=== PATIENT | male | born 1960 | race Caucasian/White ===

== ENCOUNTER 2016-09-29 14:11 | Emergency (ER) | payer OTHER ==
[~2016-09-29 14:11] MED LIST: AMARYL1 MG PO; ASPIRIN EC LOW81 MG PO; FUROSEMIDE40 MG PO; GLUCOPHAGE500 MG PO; KLOR-CON 1010 MEQ PO; LANTUS SOL100 UNITS/ SC; METFORMIN HCL500 MG PO; PROAIR HFA IN
--- NOTE | 2016-09-29 15:51 | DIAGNOSTIC IMAGING REPORT ---
PROCEDURE: XR CHEST 2 VIEW INDICATION: SHORTNESS OF BREATH TECHNIQUE: PA and lateral views. COMPARISON: CT abdomen and pelvis of 07/30/2014 FINDINGS: Lungs are clear. There is a scarring and pleural thickening at the left costophrenic angle that was visible on and abdominal CT from 2015. Previous sternotomy. IMPRESSION: 1. No acute disease
--- NOTE | 2016-09-29 16:45 | DIAGNOSTIC IMAGING REPORT ---
PROCEDURE: CT ABDOMEN/PELVIS W/O CONTRAST INDICATION: ABDOMINAL PAIN TECHNIQUE: Axial CT images were obtained through the abdomen and pelvis without IV contrast. Coronal and sagittal reformations were created. COMPARISON: Abdominal CT 07/30/2014 FINDINGS: ABDOMEN: Multiple nonobstructing left renal calculi (two - 4 mm (and single nonobstructing right renal calculus, 5 mm. No hydronephrosis. Normal ureters and bladder. Mild right basilar scarring. Mild cardiomegaly. Median sternotomy. Liver, gallbladder, pancreas, spleen and adrenal glands are normal. Mild calcific atherosclerosis. PELVIS: Appendix not visualized. Redundant sigmoid. No diverticulosis, inflammatory changes or free fluid. Prostate and bladder are unremarkable. Old left rib fracture. Severe L5-S1 disc space narrowing. IMPRESSION: 1. Multiple nonobstructing bilateral renal calculi 2. Results discussed with Dr. Khan at 04:[address] scans at this facility use dose modulation, iterative reconstruction, and/or weight-based dosing when appropriate to reduce radiation dose to as low as reasonably achievable.
--- NOTE | 2016-09-29 17:11 | ED CLINICAL REPORT ---
Clinical Report - Physicians/Mid Levels [facility] [address] [place] [address] 09/29/2016 14:12 Patient: LEONARD SHUKLA Time Seen: 14:18. Arrived- By private vehicle. Historian- patient. Note: (sent from [facility] for evaluation). HISTORY OF PRESENT ILLNESS Chief Complaint: HIGH BLOOD SUGAR. ABNORMAL GLUCOSE. At its maximum, severity described as moderate. When seen in the E.D., severity described as moderate. Modifying factors. Not worsened by anything. Not relieved by anything. This started today and is still present. It was gradual in onset and has been waxing/waning. The patient has had fatigue and generalized weakness. (Pt state he has had an elevated blood sugar to 600 at home and had an episode of syncope 2 weeks ago. No ongoing lightheadedness or other symptoms- no CP, SOB, N/V/D, abdominal pain or Headache. He has chronic back and neck pain CODE STATUS: DNR). Similar symptoms previously: Recent medical care: The patient was seen recently by a health care provider. REVIEW OF SYSTEMS No fever, sore throat, sinus drainage, nasal congestion or cough. No difficulty breathing, chest pain, abdominal pain, nausea or vomiting. No diarrhea, bloody stools, chills, difficulty with urination or calf pain. No headache. The patient has had moderate lower back pain. It has been similar to previous symptoms. No difficulty with ambulation. He has had moderate neck pain. It has been similar to previous episodes. All systems otherwise negative, except as recorded above. PAST HISTORY PCP: Dr Zapata (new); Old PCP: Dr Barbosa PROBLEMS: Hydrocele. Coronary Artery Disease. Nephrolithiasis. COPD - Chronic Obstructive Pulmonary Disease. Diabetes Mellitus SURGERIES: CABG. Colonoscopy with one small polyp. SOCIAL HISTORY Former smoker. No alcohol use or drug use. ADDITIONAL NOTES The nursing notes have been reviewed. PHYSICAL EXAM Vital Signs: 09/29/2016 14:19 BP: 145/85. HR: 97. RR: 20. O2 saturation: 97%. Temp: 98.4 F. Pain level now: 0/10. Appearance: Alert. Anxious. Patient in mild distress. Eyes: Eyes normal inspection. No scleral icterus or pale conjunctivae. ENT: Nose normal. Mildly dry mucous membranes present. No pharyngeal erythema or tonsillar exudate. Neck: Normal inspection. Neck supple. CVS: Normal heart rate and rhythm. Pulses normal. Respiratory: No respiratory distress. Breath sounds normal. No rales, rhonchi or wheezes. Abdomen: No visible injury. Soft and nontender. No mass. Back: Normal inspection. No CVA tenderness. Skin: Skin warm and dry. Normal skin color. No rash. Normal skin turgor. Extremities: Extremities exhibit normal ROM. No calf tenderness. No lower extremity edema. Neuro: Oriented X 3. No sensory deficit. LABS, X-RAYS, AND EKG EKG: EKG time: (14:37). Normal sinus rhythm. Left atrial enlargement. First-degree atrioventricular block. LBBB. Q waves in lead V1, V2, V3 and V4. Non-specific ST segment / T wave abnormalities. EKG unchanged when compared with prior EKG. (fe 05NOV2014). The study has been interpreted contemporaneously by me. The EKG appears to be a good tracing. Chest X-ray: No acute disease. Normal lung markings present. Normal heart size. Mediastinum normal. Great vessels normal. No infiltrate. No fracture. Views: PA and lateral. Technique: good. The X-rays were interpreted contemporaneously by me. Abdominal CT: Normal aorta. Normal adrenals. Multiple urinary calculi are present in the left kidney. No obstruction. No mass. No abdominal aortic aneurysm, hydronephrosis or dilated ureter. IMPRESSION: 1. Multiple nonobstructing bilateral renal calculi. Study type: abdomen and pelvis. Abdominal CT performed without contrast. The study was independently viewed by me, interpreted by the radiologist and discussed with the radiologist. Laboratory Tests: UA-Culture if indicated: (INGA: 09/29/2016 16:15) ( MsgRcvd 09/29/2016 16:55) Final results Test Result Flag Units (Reference) URINE COLOR YELLOW URINE APPEARANCE CLEAR URINE GLUCOSE 3+ (NEGATIVE) URINE BILIRUBIN NEGATIVE (NEGATIVE) URINE KETONE TRACE (NEGATIVE) URINE SPECIFIC GRAVITY 1.010 (1.010-1.030) URINE PH 5.5 (5.0-8.0) URINE PROTEIN NEGATIVE (NEGATIVE) URINE UROBILINOGEN 0.2 EU/dL (0.2-1.0) URINE NITRITE NEGATIVE (NEGATIVE) URINE BLOOD 1+ (NEGATIVE) URINE LEUK ESTERASE NEGATIVE (NEGATIVE) URINE RBC 1-3 rbc/hpf (0-1) URINE WBC 0-1 wbc/hpf (0-1) URINE EPITHELIAL CELLS NONE SEEN EPI/hpf (0-5) URINE BACTERIA NONE SEEN (NONE SEEN) URINE COMMENT CULT NOT INDICATED URINE CULTURES ARE SET-UP BASED ON THE FOLLOWING CRITERIA:POSITIVE NITRITEPOSITIVE LEUKOCYTE ESTERASEGREATER THAN 10 WHITE BLOOD CELLSMODERATE (2+) OR GREATER BACTERIA CBC w Diff: (INGA: 09/29/2016 15:00) ( LagRcvd 09/29/2016 15:08) Final results Test Result Flag Units (Reference) WHITE BLOOD COUNT 10.2 K/uL (4.5-11.5) RED BLOOD COUNT 5.06 M/uL (4.50-5.90) HEMOGLOBIN 15.8 gm/dL (13.5-17.5) HEMATOCRIT 46.3 % (41.0-53.0) MEAN CELL VOLUME 91 fL (80-100) MEAN CORPUSCULAR HGB 31 pg (26-34) MEAN CORPUSCULAR HGB CONC 34 g/dL (31-37) RED CELL DISTRIBUTION WIDTH 13.1 % (11.6-14.8) PLATELET COUNT 238 K/uL (150-400) NEUTROPHIL % 69.9 % (50-75) LYMPH % 22.4 L % (25-40) MONO % 6.5 % (3-14) EOSINOPHIL % 0.9 % (0-4) BASOPHIL % 0.3 % (0-2) PT with INR: (INGA: 09/29/2016 15:00) ( MsgRcvd 09/29/2016 15:21) Final results Test Result Flag Units (Reference) INR 0.9 (0.8-1.2) Low Intensity Therapy: INR 1.5-2.0 PT range 18.5-23.1Mod.Intensity Therapy: INR 2.0-3.0 PT range 23.1-31.5High Intensity Therapy: INR 2.5-3.5 PT range 27.4-35.5High Intensity Therapy 2: INR 3.0-4.0 PT range 31.5-39.3 D-DIMER QUANTITATIVE 0.30 ug/mLFEU (0.27-0.52) The primary value of this quantitative assay relates toits negative predictive value (i.e. exclusion) of pulmonaryembolism/deep vein thrombosis/DIC.Elevated levels of d-dimer may also occur with:, age, cancer, inflammation, liver disease,post-op, infection, hematoma, coronary disease, peripheralarteriopathy, bleeding disorders and thrombolytic treatment.Results should be correlated with other clinical andradiological data.Testing Methodology: Latex Immunoassay Acetone, Serum: (INGA: 09/29/2016 15:00) ( MsgRcvd 09/29/2016 15:55) Final results Test Result Flag Units (Reference) ACETONE, SERUM QUALITATIVE NEGATIVE (NEGATIVE) REPEAT This is a corrected result 09/29/16 1554:ACETONE, SERUM previously reported as: NEGATIVE Urine Drug Screen: (INGA: 09/29/2016 16:15) ( MsgRcvd 09/29/2016 16:54) Final results Test Result Flag Units (Reference) AMPHETAMINE/METHAMPHETAMINE NEGATIVE (NEGATIVE) BARBITURATE NEGATIVE (NEGATIVE) BENZODIAZEPINE NEGATIVE (NEGATIVE) CANNABINOID NEGATIVE (NEGATIVE) COCAINE NEGATIVE (NEGATIVE) ECSTASY NEGATIVE (NEGATIVE) METHADONE NEGATIVE (NEGATIVE) OPIATE NEGATIVE (NEGATIVE) The urine drug screen is a qualitative screening test fordrug overdose and abuse. All screen results should beconsidered as presumptive.Drugs screened for are as follows:BenzodiazepinesCocaineAmphetamines/MetamphetaminesTHC (Tetrahydrocannabinol)OpiatesBarbituratesEcstasyMethadonePositive results are unconfirmed. For confirmation, notifythe lab for the specimen to be sent to the reference lab.All confirmations must be performed by a differentmethodology.The ingestion of natural herbal and plant productscontaining Ephedra/Ephedra metabolites can produce in urineone or more substances capable of cross reacting withamphetamine/methamphetamine immunoassays. These testsprovide a preliminary result only. A more specificalternative chemical method must be used to obtain aconfirmed analytical result. BNP: (INGA: 09/29/2016 15:00) ( MsgRcvd 09/29/2016 15:33) Final results Test Result Flag Units (Reference) B-TYPE NATRIURETIC PEPTIDE 149 H pg/ml (5-100) CHEM 13 PANEL: (INGA: 09/29/2016 15:00) ( MsgRcvd 09/29/2016 16:01) Final results Test Result Flag Units (Reference) GLUCOSE 451 H mg/dL (70-110) BUN 16 mg/dL (7-18) CREATININE 1.2 mg/dL (0.6-1.3) Estimated GFR >60 mL/min Estimated GFR- >60 mL/min Note: Persistent reduction over 3 months in eGFR<60 mL/min/1.73 m2 defines CKD. Patients with eGFR values>=60 mL/min/1.73 m2 may also have CKD if evidence ofpersistent proteinuria. Additional information may be foundat www.kidney.org. SODIUM 135 L mmol/L (136-145) POTASSIUM 3.8 mmol/L (3.5-5.1) CHLORIDE 97 L mmol/L (98-107) CARBON DIOXIDE 20 L mmol/L (21-32) CALCIUM 8.6 mg/dL (8.5-10.1) TOTAL PROTEIN 7.7 g/dL (6.4-8.2) ALBUMIN 3.6 g/dL (3.3-5.0) BILIRUBIN, TOTAL 0.5 mg/dL (0.0-1.0) ALKALINE PHOSPHATASE 81 U/L (46-116) AST (SGOT) 20 U/L (15-37) ALT (SGPT) 29 U/L (12-78) MAGNESIUM 1.7 L mg/dL (1.8-2.4) LIPASE 214 U/L (73-393) AMYLASE 27 U/L (25-115) CPK 76 U/L (24-260) TROPONIN I 0.16 ng/mL (0.00-1.5) TROPONIN REFERENCE RANGE:<0.1 NEGATIVE0.1-1.5 INDETERMINANT>1.5 POSITIVE THYROID STIMULATING HORMONE 1.436 uIU/mL (0.30-3.74) . Pulse Oximetry: 09/29/2016 14:19 O2 saturation: 97%. (FIO2 - room air). Interpretation: normal. PROGRESS AND PROCEDURES Course of Care: Normal Saline 1 liter IVPB given. Regular Insulin 7 units IVP given. 15:38 09/29/16. Just informed that pt has begun having LLQ area pain. He states, "I used to get this all the time, but since I had TIA's, I can't remember what the problem was". Pt has prior abd CT at [facility] demonstrating kidney stones and similar history. Pt is refusing admission after full discussion of risks and benefits. Patient/family counseled. Old ED records reviewed. Disposition: Discharged. Condition: stable and improved. CLINICAL IMPRESSION Acute left lower quadrant abdominal pain of unknown cause. Chronic, poorly controlled type 2 diabetes with hyperglycemia. No coma. Bilateral, nonobstructing kidney stones. INSTRUCTIONS Drink plenty of fluids. (You have elected to go home against medical advise and understand that I cannot rule out other problems without further tests and admission.). Warnings: Further evaluation is necessary in order to recheck abnormal lab, obtain test results, conduct further tests and assess the possibility of serious illness. It is very important to follow up with a physician. GENERAL WARNINGS: Return or contact your physician immediately if your condition worsens or changes unexpectedly, if not improving as expected, or if other problems arise. Your Current Medications: CONTINUE TAKING THE FOLLOWING MEDICATIONS: Furosemide Oral : 40 mg daily. Glipizide Oral : Tablet 5 mg, 1 tablet daily. Janumet XR Oral : Tablet Extended Release 24 Hour 50-1000 mg, 1 tablet BID. Klor-Con 10 Oral. Reglan Oral : Tablet 10 mg, 1 tablet PRN. Follow-up: Follow up with your doctor tomorrow. AMA warnings: Oriented to person, place, and time. Gives appropriate answers and rational explanation of refusal of care. No indication for involuntary commitment is present, signs of psychosis, auditory hallucinations, delusional thinking or suicidal ideations. No slurred speech, tangential thinking, visual hallucinations or homicidal ideations. Speaks coherently. Abstract thinking intact. Clinical Impression: the patient has the capacity to make decisions regarding the medical care offered. Relevant issues reviewed and discussed with the patient. Acknowledges understanding of the reasons for recommendations regarding medical treatment, medical tests, admission to facility and further observation. The risks of refusing recommended care that were disclosed are and permanent mental impairment. Discharge instructions were provided. REFUSAL OF CARE STATEMENT (patient to review and sign in discharge instructions): I have read this paragraph. I understand that a doctor at this hospital wants to give me certain medical care. The doctor explained that care to me, and I understand what that care is. The doctor also explained to me what could happen to me if I leave here without having that care, and I understand what he said. I know that I am welcome to return to this hospital at any time to receive the recommended care or any other care that I may need at any time, regardless of my ability to pay for such care. (Electronically signed by Vic Khan DO 09/29/2016 20:40)
--- NOTE | 2016-09-29 17:11 | ED ORDER SUMMARY ---
..... Patient: LEONARD SHUKLA OrderSheet [facility] VisitID: [id number] [address] [place] [address] 56y, M Registration Date/Time: 09/29/2016 ORDER SHEET Weight: 90.7 kg (stated) Allergies: CONTRAST DYE, Naprosyn, Niacin and Related, PredniSONE GENERAL ORDERS: Chest 2V Urgent (14:09/29/2016 PHutchinson DO) (Ack 14:32 LNations ER Tech1) (16:24 MCampbell) Compliance And Control Analyst (Continuous) (14:09/29/2016 PHalchinson DO) (Ack 14:31 LNations ER Tech1) (15:21 JSimbeck R.N.) UA-Culture if indicated Urgent (14:09/29/2016 PHalchinson DO) (Ack 14:31 LNations ER Tech1) (16:41 JSimbeck R.N.) Cardiac Panel Stat (14:09/29/2016 PHalchinson DO) (Ack 14:31 LNations ER Tech1) (15:02 CHernandez R.N.) BNP Urgent (14:09/29/2016 PHutchinson DO) (Ack 14:31 LNations ER Tech1) (15:02 CHernandez R.N.) D-Dimer Urgent (14:09/29/2016 PHutchinson DO) (Ack 14:32 LNations ER Tech1) (15:02 CHernandez R.N.) Amylase Urgent (14:09/29/2016 PHutchinson DO) (Ack 14:32 LNations ER Tech1) (15:02 CHernandez R.N.) PT with INR Urgent (14:09/29/2016 PHutchinson DO) (Ack 14:32 LNations ER Tech1) (15:02 CHernandez R.N.) TSH Urgent (14:09/29/2016 PHutchinson DO) (Ack 14:32 LNations ER Tech1) (15:02 CHernandez R.N.) Lipase Urgent (14:09/29/2016 PHutchinson DO) (Ack 14:32 LNations ER Tech1) (15:21 JSimbeck R.N.) Urine Drug Screen Urgent (14:21 09/29/2016 PHutchinson DO) (Ack 14:32 LNations ER Tech1) (15:21 JSimbeck R.N.) Pulse oximeter (14:21 09/29/2016 PHut DO) (14:29 JSimbeck R.N.) EKG - ER Stat (14:21 09/29/2016 PHutson DO) (Ack 14:31 LNations ER Tech1) (14:48 RKaruga) Vitals (14:21 09/29/2016 PHutchinson DO) (14:29 JSimbeck R.N.) POC Glucose (14:21 09/29/2016 PHutchinson DO) (14:29 JSimbeck R.N.) Call (Place call to): (Dr [facility]) (15:05 09/29/2016 PHutchinson DO) (Ack 15:05 LNations ER Tech1) (15:05 LNations ER Tech1) Acetone, Serum Urgent (15:29 09/29/2016 PH) (Ack 15:30 LNations ER Tech1) (16:41 JSimbeck R.N.) CT Abd/Pel wo Cont (left sided; history of stones) Urgent (15:40 09/29/2016 ) (Ack 15:41 LNations ER Tech1) (16:24 MCampbell) POC Glucose (16:17 09/29/2016 ) (16:33 JSimbeck R.N.) MEDICATION ORDERS: IV FLUIDS: IV NS : initial bolus 1000 mL (1000 mL/hr), then 500 mL/hr for X2 (NOW) (14:21 09/29/2016 PHutson DO) (Ack 14:43 CHernandez R.N.) (15:05 CHernandez R.N.) Insulin Reg IV 7 units (HIGH ALERT MEDICATION, NOW) (14:41 09/29/2016 ) (Ack 14:43 Karlanandez R.N.) (15:24 CHernandez R.N.) ORDER SHEET NOTES: [Electronically signed by Marquis Herman R.N. (17:49 09/29/2016)] [Electronically signed by Vic Khan DO (20:40 09/29/2016)] [Electronically locked/signed by Marquis Herman R.N. (17:49 09/29/2016)]
--- NOTE | 2016-09-29 17:11 | ED NURSING NOTES ---
Clinical Report - Nurses [facility] [address] [place] [address] 09/29/2016 14:12 Patient: LEONARD SHUKLA TRIAGE Triage time 14:19. Acuity: LEVEL 3. Chief Complaint: (High BG x2 weeks (since med change). Pt was sent by [facility] in [facility]. C/o feeling shakey.). ( BG 437). ESTRELLA COMA SCORE: [place] Coma Scale: 15- eyes open spontaneously (4); best verbal response- oriented x 4 (5); best motor response- obeys commands (6). --14:28 Marquis Herman R.N. 14:19 09/29/16. BP: 145/85 (regular adult cuff) taken on the left arm, while lying. HR: 97. RR: 20. O2 saturation: 97% on room air. Temp: 98.4 F (oral). Pain level now: 0/10. --14:28 Marquis Herman R.N. Weight: 90.7 kg stated. Height/Length: 74 inches Per Patient. BMI: 25.7. --14:21 Marquis Herman R.N. Medications Furosemide Oral 40 mg, daily. Klor-Con 10 Oral. Reglan Oral (Tablet 10 mg) 1 tablet, PRN. --14:21 Marquis Herman R.N. Janumet XR Oral (Tablet Extended Release 24 Hour 50-1000 mg) 1 tablet, BID. --14:23 Marquis Herman R.N. Glipizide Oral (Tablet 5 mg) 1 tablet, daily. --14:24 Marquis Herman R.N. Allergies CONTRAST DYE.(Anaphylaxis) Naprosyn.(Anaphylaxis) Niacin and Related.(Anaphylaxis) (high dose) PredniSONE.(Anaphylaxis) (high dose) --14:20 Marquis Herman R.N. History Arrived by private vehicle. Historian: patient. SOCIAL HX: Former smoker, end date 2003 (cigarette). No alcohol use or drug use. ABUSE ASSESSMENT: No report of abuse. --14:28 Marquis Herman R.N. PROBLEMS: Hydrocele. Coronary Artery Disease. Nephrolithiasis. COPD - Chronic Obstructive Pulmonary Disease. Diabetes Mellitus. --14:21 Marquis Herman R.N. ADDITIONAL SURGERIES: CABG. --14:21 Marquis Herman R.N. Assessment GENERAL / NEURO / PSYCH: Alert. Oriented X 4. Appears in no acute distress. RESPIRATORY: Respirations not labored. Chest nontender. Breath sounds within normal limits. CVS: Capillary refill less than 2 seconds. GI / : Abdomen soft and nontender. SKIN: Mucous membranes are pink. Skin is warm and dry. --14:28 Marquis Herman R.N. Interventions ID band on patient. To treatment room. --14:28 Marquis Herman R.N. PHYSICAL ASSESSMENT Ambulatory to room. GENERAL / NEURO / PSYCH: Alert. Oriented X 4. Appears in no acute distress. HEENT: Pupils equal, round and reactive to light. No facial asymmetry noted. Mucous membranes are pink. RESPIRATORY: Respirations not labored. Chest nontender. Breath sounds within normal limits. CVS: Capillary refill less than 2 seconds. Pulses within normal limits. GI / : Abdomen soft and nontender and normal bowel sounds. SKIN: Skin is warm and dry. Normal skin turgor. --14:29 Marquis Herman R.N. NURSING PROGRESS NOTES Patient gowned. Head of bed elevated. Reassurance given. Two patient identifiers checked. Call light placed in reach. Bed placed in lowest position. Brakes of bed on. Patient ready for evaluation- chart flagged. --14:29 Marquis Herman R.N. EKG time: (14:37). EKG was performed by a tech and shown to the ED physician. --14:48 Iris Perera 14:57 09/29/2016 Site #1 started via IV in the left antecubital space with an 20g angiocath; one attempt. Blood drawn: rainbow set. Labeled in the presence of the patient and sent to the lab. Saline lock flushed with 10 mL saline. --15:02 Spencer Carreno R.N. 15:05 09/29/2016 Started bag #1 1000 mL IV Fluids IV NS (Saline); bolus of 1000 mL over 1 hour(s) via site #1 via IV pump. Allergies verified and confirmed 5 rights. IV patency established. IV site checked: no pain, redness, or swelling. IV flushed thoroughly pre- and post-medication administration. --15:05 Spencer Carreno R.N. 15:00 09/29/16. BP: 121/76. HR: 102. RR: 13. O2 saturation: 96%. --15:05 Spencer Carreno R.N. Patient ID band checked for patient name and birthdate: patient confirmed. Blood samples drawn from the left antecubital space peripheral IV site with Vacutainer by nurse: ranjan de jesus. Line flushed with 10 mL normal saline post blood draw. --15:05 Spencer Carreno R.N. <<STRICKEN ENTRY-- 15:19 09/29/2016 Insulin REG IVP 7 unit given over 2 minute(s) via site #1. --15:24 Spencer Carreno R.N. --END STRIKE>> Correction. --15:24 Spencer Carreno R.N. 15:19 09/29/2016 Insulin REG IVP 7 unit given over 2 minute(s) via site #1. Allergies verified and confirmed 5 rights. IV patency established. IV site checked: no pain, redness, or swelling. IV flushed thoroughly pre- and post-medication administration. IVP given by RN. --15:24 Spencer Carreno R.N. 15:20 09/29/2016 Insulin REG IVP Co-signature: dosage, concentration and rate verified. --15:25 Cris Barrios <<STRICKEN ENTRY-- Finger stick glucose: 437 mg/dL; performed by [employer]. --15:46 Iris Perera --END STRIKE>> Correction --15:47 Iris Perera Finger stick glucose: 437 mg/dL 14:30; performed by [employer]; result shown to the RN. --15:47 Iris Perera 16:28 09/29/2016 IV Fluids IV NS Discontinued: bag #1 infused. Total amount infused: 1000 mL. --16:28 Kalli Shah R.N. 16:30 09/29/2016 Started bag #2 1000 mL IV Fluids IV NS (Saline); at 500 mL/hr via site #1 via IV pump. Confirmed 5 rights. --16:30 Kalli Shah R.N. ( BG 300 after insulin.). --16:33 Marquis Herman R.N. 16:30 09/29/16. BP: 147/80. HR: 90. RR: 16. O2 saturation: 95% on room air. Pain level now: 0/10. --16:37 Marquis Herman R.N. 15:35 09/29/16. BP: 137/96. HR: 104. RR: 21. O2 saturation: 99% on room air. --16:38 Marquis Herman R.N. 15:05 09/29/16. BP: 144/82. HR: 96. RR: 15. O2 saturation: 95% on room air. Pain level now: 0/10. --16:39 Marquis Herman R.N. 16:33 09/29/2016 Insulin REG IVP Response: no adverse reaction symptoms have improved (BG 300). --17:17 Marquis Herman R.N. 17:20 09/29/2016 IV Fluids IV NS Discontinued: bag #2 STOPPED upon discharge. Total amount infused: 400 mL. IV patency established. IV site checked: no pain, redness, or swelling. IV flushed thoroughly. --17:27 Marquis Herman R.N. DISPOSITION / DISCHARGE 17:22 09/29/2016 Site #1 removed upon discharge. Bandage applied. --17:25 Marquis Herman R.N. Cardiac rhythm: normal sinus rhythm; 1st degree AV block; left bundle branch block. Departure time: 1724. Condition at departure: improved and stable. No learning barriers present. Discharge instructions provided and reviewed with the patient. Reviewed warnings. Reviewed referrals. Patient verbalized understanding. Written instructions provided in [place]. The patient was discharged by the physician. He was discharged home. He left the Emergency Department ambulatory and via private vehicle. Patient driving. --17:26 Marquis Herman R.N. 17:00 09/29/16. BP: 137/76. HR: 86. RR: 16. O2 saturation: 98% on room air. Temp: 98.4 F. Pain level now: 0/10. --17:26 Marquis Herman R.N. Locked/Released at 09/29/2016 17:49 by Marquis Herman R.N.
--- NOTE | 2016-09-29 17:11 | ED ORDER SUMMARY ---
..... Patient: LEONARD SHUKLA OrderSheet [facility] VisitID: [id number] [address] [place] [address] 56y, M Registration Date/Time: 09/29/2016 ORDER SHEET Weight: 90.7 kg (stated) Allergies: CONTRAST DYE, Naprosyn, Niacin and Related, PredniSONE GENERAL ORDERS: Chest 2V Urgent (14:09/29/2016 PHutchinson DO) (Ack 14:32 LNations ER Tech1) (16:24 MCampbell) Cnc Supervisor (Continuous) (14:09/29/2016 PHsdchinson DO) (Ack 14:31 LNations ER Tech1) (15:21 JSimbeck R.N.) UA-Culture if indicated Urgent (14:09/29/2016 PHsdchinson DO) (Ack 14:31 LNations ER Tech1) (16:41 JSimbeck R.N.) Cardiac Panel Stat (14:09/29/2016 PHsdchinson DO) (Ack 14:31 LNations ER Tech1) (15:02 CHernandez R.N.) BNP Urgent (14:09/29/2016 PHutchinson DO) (Ack 14:31 LNations ER Tech1) (15:02 CHernandez R.N.) D-Dimer Urgent (14:09/29/2016 PHutchinson DO) (Ack 14:32 LNations ER Tech1) (15:02 CHernandez R.N.) Amylase Urgent (14:09/29/2016 PHutchinson DO) (Ack 14:32 LNations ER Tech1) (15:02 CHernandez R.N.) PT with INR Urgent (14:09/29/2016 PHutchinson DO) (Ack 14:32 LNations ER Tech1) (15:02 CHernandez R.N.) TSH Urgent (14:09/29/2016 PHutchinson DO) (Ack 14:32 LNations ER Tech1) (15:02 CHernandez R.N.) Lipase Urgent (14:09/29/2016 PHutchinson DO) (Ack 14:32 LNations ER Tech1) (15:21 JSimbeck R.N.) Urine Drug Screen Urgent (14:21 09/29/2016 PHutchinson DO) (Ack 14:32 LNations ER Tech1) (15:21 JSimbeck R.N.) Pulse oximeter (14:21 09/29/2016 PHut DO) (14:29 JSimbeck R.N.) EKG - ER Stat (14:21 09/29/2016 PHutson DO) (Ack 14:31 LNations ER Tech1) (14:48 RKaruga) Vitals (14:21 09/29/2016 PHutchinson DO) (14:29 JSimbeck R.N.) POC Glucose (14:21 09/29/2016 PHutchinson DO) (14:29 JSimbeck R.N.) Call (Place call to): (Dr Forbes) (15:05 09/29/2016 PHutchinson DO) (Ack 15:05 LNations ER Tech1) (15:05 LNations ER Tech1) Acetone, Serum Urgent (15:29 09/29/2016 PH) (Ack 15:30 LNations ER Tech1) (16:41 JSimbeck R.N.) CT Abd/Pel wo Cont (left sided; history of stones) Urgent (15:40 09/29/2016 ) (Ack 15:41 LNations ER Tech1) (16:24 MCampbell) POC Glucose (16:17 09/29/2016 ) (16:33 JSimbeck R.N.) MEDICATION ORDERS: IV FLUIDS: IV NS : initial bolus 1000 mL (1000 mL/hr), then 500 mL/hr for X2 (NOW) (14:21 09/29/2016 PHutson DO) (Ack 14:43 CHernandez R.N.) (15:05 CHernandez R.N.) Insulin Reg IV 7 units (HIGH ALERT MEDICATION, NOW) (14:41 09/29/2016 ) (Ack 14:43 Karlanandez R.N.) (15:24 CHernandez R.N.) ORDER SHEET NOTES: [Electronically signed by Marquis Herman R.N. (17:49 09/29/2016)] [Electronically signed by Vic Khan DO (20:40 09/29/2016)] [Electronically locked/signed by Marquis Herman R.N. (17:49 09/29/2016)]
--- NOTE | 2016-09-29 20:41 | ED MED RECONCILIATION SUMMARY ---
Patient: LEONARD SHUKLA Medication Reconciliation Report [facility] VisitID: [id number] [address] [place] [address] 56y, M Registration Date/Time: 09/29/2016 Weight: 90.7 kg Height/Length: 74 in. BMI: 25.7 ALLERGIES: CONTRAST DYE, Naprosyn, Niacin and Related, PredniSONE The patient's Home Medications are listed below: CONTINUE TAKING THE FOLLOWING MEDICATIONS: Furosemide Oral 40 mg, daily Glipizide Oral (5 mg) 1 tablet, daily Janumet XR Oral (50-1000 mg) 1 tablet, BID Klor-Con 10 Oral Reglan Oral (10 mg) 1 tablet, PRN The source(s) of the original Home Medication information: Not obtained. The following Medications were given to the patient in the Emergency Department: IV NS IV Fluids bolus 1000 mL over 1 hour(s), administered: 09/29/2016 3:05:00 PM Insulin REG [IVP] IVP 7 unit, administered: 09/29/2016 3:19:00 PM IV NS IV Fluids bolus 0, then 500 mL/hr, administered: 09/29/2016 4:30:00 PM The following Medications were prescribed to the patient: None.
--- NOTE | 2016-09-29 20:41 | ED MAR SUMMARY ---
..... Medication Administration Record [facility] [address] [place] [address] Patient: LEONARD SHUKLA Visit ID: [id number] 56y, M Weight: 90.7 kg Height/Length: 74 in BMI: 25.7 ALLERGIES: CONTRAST DYE, Naprosyn, Niacin and Related, PredniSONE Start 15:05 09/29/2016 Spencer Carreno R.N., Stop 16:28 09/29/2016 Kalli Shah R.N. Medication Administered: IV NS (SALINE), Dose: IV Fluids, Bolus: 1000 mL over 1 hour(s), Dispensed: 1000 mL bag, Site: #1 left AC. Medication Ordered: IV NS : initial bolus 1000 mL (1000 mL/hr), then 500 mL/hr for X2 (NOW). Given 15:19 09/29/2016 Spencer Carreno R.N. Medication Administered: INSULIN REG [IVP], Dose: 7 unit IVP over 2 minute(s), Site: #1 left AC. Medication Ordered: Insulin Reg IV 7 units (HIGH ALERT MEDICATION, NOW). Start 16:30 09/29/2016 Kalli Shah R.N., Stop 17:20 09/29/2016 Marquis Herman R.N. Medication Administered: IV NS (SALINE), Dose: IV Fluids, Rate: 500 mL/hr, Dispensed: 1000 mL bag, Site: #1 left AC. Medication Ordered: IV NS : initial bolus 1000 mL (1000 mL/hr), then 500 mL/hr for X2 (NOW).
--- NOTE | 2016-09-29 20:41 | ED MED RECONCILIATION SUMMARY ---
Patient: LEONARD SHUKLA Medication Reconciliation Report [facility] VisitID: [id number] [address] [place] [address] 56y, M Registration Date/Time: 09/29/2016 Weight: 90.7 kg Height/Length: 74 in. BMI: 25.7 ALLERGIES: CONTRAST DYE, Naprosyn, Niacin and Related, PredniSONE The patient's Home Medications are listed below: CONTINUE TAKING THE FOLLOWING MEDICATIONS: Furosemide Oral 40 mg, daily Glipizide Oral (5 mg) 1 tablet, daily Janumet XR Oral (50-1000 mg) 1 tablet, BID Klor-Con 10 Oral Reglan Oral (10 mg) 1 tablet, PRN The source(s) of the original Home Medication information: Not obtained. The following Medications were given to the patient in the Emergency Department: IV NS IV Fluids bolus 1000 mL over 1 hour(s), administered: 09/29/2016 3:05:00 PM Insulin REG [IVP] IVP 7 unit, administered: 09/29/2016 3:19:00 PM IV NS IV Fluids bolus 0, then 500 mL/hr, administered: 09/29/2016 4:30:00 PM The following Medications were prescribed to the patient: None.
--- NOTE | 2016-09-29 20:41 | ED MAR SUMMARY ---
..... Medication Administration Record [facility] [address] [place] [address] Patient: LEONARD SHUKLA Visit ID: [id number] 56y, M Weight: 90.7 kg Height/Length: 74 in BMI: 25.7 ALLERGIES: CONTRAST DYE, Naprosyn, Niacin and Related, PredniSONE Start 15:05 09/29/2016 Spencer Carreno R.N., Stop 16:28 09/29/2016 Kalli Shah R.N. Medication Administered: IV NS (SALINE), Dose: IV Fluids, Bolus: 1000 mL over 1 hour(s), Dispensed: 1000 mL bag, Site: #1 left AC. Medication Ordered: IV NS : initial bolus 1000 mL (1000 mL/hr), then 500 mL/hr for X2 (NOW). Given 15:19 09/29/2016 Spencer Carreno R.N. Medication Administered: INSULIN REG [IVP], Dose: 7 unit IVP over 2 minute(s), Site: #1 left AC. Medication Ordered: Insulin Reg IV 7 units (HIGH ALERT MEDICATION, NOW). Start 16:30 09/29/2016 Kalli Shah R.N., Stop 17:20 09/29/2016 Marquis Herman R.N. Medication Administered: IV NS (SALINE), Dose: IV Fluids, Rate: 500 mL/hr, Dispensed: 1000 mL bag, Site: #1 left AC. Medication Ordered: IV NS : initial bolus 1000 mL (1000 mL/hr), then 500 mL/hr for X2 (NOW).
--- NOTE | 2016-09-29 20:41 | ED DISCHARGE INSTRUCTIONS ---
Patient: LEONARD SHUKLA General Instructions [facility] VisitID: [id number] [address] [place] [address] 56y, M Registration Date/Time: 09/29/2016 Acute left lower quadrant abdominal pain of unknown cause. Chronic, poorly controlled type 2 diabetes with hyperglycemia. No coma. Bilateral, nonobstructing kidney stones. INSTRUCTIONS Drink plenty of fluids. (You have elected to go home against medical advise and understand that I cannot rule out other problems without further tests and admission.). Warnings: Further evaluation is necessary in order to recheck abnormal lab, obtain test results, conduct further tests and assess the possibility of serious illness. It is very important to follow up with a physician. GENERAL WARNINGS: Return or contact your physician immediately if your condition worsens or changes unexpectedly, if not improving as expected, or if other problems arise. Your Current Medications: CONTINUE TAKING THE FOLLOWING MEDICATIONS: Furosemide Oral : 40 mg daily. Glipizide Oral : Tablet 5 mg, 1 tablet daily. Janumet XR Oral : Tablet Extended Release 24 Hour 50-1000 mg, 1 tablet BID. Klor-Con 10 Oral. Reglan Oral : Tablet 10 mg, 1 tablet PRN. Follow-up: Follow up with your doctor tomorrow. AMA warnings: Oriented to person, place, and time. Gives appropriate answers and rational explanation of refusal of care. No indication for involuntary commitment is present, signs of psychosis, auditory hallucinations, delusional thinking or suicidal ideations. No slurred speech, tangential thinking, visual hallucinations or homicidal ideations. Speaks coherently. Abstract thinking intact. Clinical Impression: the patient has the capacity to make decisions regarding the medical care offered. Relevant issues reviewed and discussed with the patient. Acknowledges understanding of the reasons for recommendations regarding medical treatment, medical tests, admission to facility and further observation. The risks of refusing recommended care that were disclosed are and permanent mental impairment. Discharge instructions were provided. REFUSAL OF CARE STATEMENT (patient to review and sign in discharge instructions): I have read this paragraph. I understand that a doctor at this hospital wants to give me certain medical care. The doctor explained that care to me, and I understand what that care is. The doctor also explained to me what could happen to me if I leave here without having that care, and I understand what he said. I know that I am welcome to return to this hospital at any time to receive the recommended care or any other care that I may need at any time, regardless of my ability to pay for such care. ADDITIONAL INFORMATION Diabetes with High Blood Sugar You have been treated for high blood sugar (hyperglycemia). This may be becauseof an infection or other illness;eating too many sweets or starches ; not taking enough insulin. Home care High blood sugar may cause symptoms that you can learn to recognize, such as these: If you feel like your blood sugar may be too high, measure it using a blood or urine test. If it is above your usual range, use the "sliding scale"rRegular insulin dose your doctor gave you to correct this. If no "sliding scale" orders were given, contact your doctor for further advice. If your blood sugar is over 300, and you can't reach your doctor, go to the hospital emergency room. Monitor and write down your blood sugars - and insulin dose, if you take insulin - atleast twice a day. Do this before breakfast and before dinner. Do this for the next 3 to 5 days. Follow-up care Follow up with your health care provderring the next week to review your blood sugar records. You will find out if you need to adjust your dose of insulin or other medicine for blood sugar. When to seek medical care Get prompt medical attention if either of these occur: High blood sugar.Symptoms are frequent urination, feeling dizzy, thirst, headache, nausea or vomiting, abdominal pain, and drowsiness or loss of consciousness. Low blood sugar. Symptoms are fatigue, headache, shakes, excess sweating, hunger, anxiety, reduced vision, drowsiness, weakness, confusion or loss of consciousness, and seizure. Abdominal Pain,Uncertain Cause [Male] Based on your visit today, the exact cause of your abdominalpain is not clear. Your exam and tests do not indicate a dangerous cause at this time. However, the signs of a serious problem may take more time to appear. Although your evaluation was reassuring today, sometimes early in the course of many conditions, exam and lab tests can appear normal. Therefore, it is important for you to watch for any new symptoms or worsening of your condition. Causes It may not be obvious what caused your symptoms. Pay attention to things that do seem to make your symptoms worse or better and discuss this with your doctor when you follow up. Diagnosis The evaluation of abdominal pain in the emergency department may onlyrequire an exam by the doctor or it may include blood, urine or imaging studies, depending on many factors. Sometimes exams and tests can identify a cause but in many cases, a clear cause is not found. Further testing at follow up visits may help to suggest a clear diagnosis. Home Care Rest as much as possible until your next exam. Try to avoid any medications (unless otherwise directed by your doctor), foods, activities, or other factors that you may have contributed to your symptoms. Try to eat foods that you know that you have tolerated well in the past. Certain diets may be recommended for some conditions that cause abdominal pain. However, since the cause of your symptoms may not be clear, discuss your diet more with your primary care provider or specialist for further recommendations. Eating several small meals per day as opposed to 2 or 3 larger meals may help. Monitor closely for anything that may make your symptoms worse or better. Pay close attention to symptoms below that may indicate worsening of your condition. Follow Up and Precautions See your doctoras instructed or sooneror if your symptoms are not improving.In some cases, you may need more testing. When to Seek Medical Attention Contact your doctor or see medical attention ifany of the following occur: Pain is becoming worse You are unable to take your medications due to excessive vomiting Swelling of the abdomen Fever of 100.4F (38C) or higher, or as directed by your health care provider Blood in vomit or bowel movements (dark red or black color) Jaundice (yellow color of eyes and skin) New onset of weakness, dizziness or fainting New onset of chest, arm, back, neck or jaw pain You have been given the following additional information: Diabetic Hyperglycemia Abdominal Pain, Unknown Cause, (Male) (Electronically signed by Vic Khan DO 09/29/2016 20:40)
== END 2016-09-29 17:24 | disposition home or self-care (01) ==
LOC: ED SRH 14:11
DX: E11.65 Type 2 diabetes mellitus with hyperglycemia (principal); N20.0 Calculus of kidney; R10.32 Left lower quadrant pain; J44.9 Chronic obstructive pulmonary disease, unspecified; Z95.1 Presence of aortocoronary bypass graft
CPT/HCPCS: 90004; 90098; 90100; 90301; 90616; 91320; 91556; 92235; 92530; 92610; 92720; 92760; 92761; 92762; 92763; 92764; 92765; 92766; 92767; 93140; 94060; 95059

== ENCOUNTER 2016-10-29 08:41 | Outpatient (CLI) | payer OTHER ==
--- NOTE | 2016-10-29 12:19 | DIAGNOSTIC IMAGING REPORT ---
PROCEDURE: CT ABDOMEN/PELVIS W/O CONTRAST INDICATION: KIDNEY STONES, flank pain TECHNIQUE: Axial CT images were obtained through the abdomen and pelvis without IV contrast. Coronal and sagittal reformations were created. COMPARISON: 09/29/2016 and 07/30/2014 FINDINGS: There is a collection of nonobstructing coarse calcifications in the lower pole of the left kidney, the largest measures approximately 9 x 6 x 7 mm. There are about four other linear calcifications measuring about 6 mm maximally in the left lower pole. There has likely been interval passage of one of the stones since the most recent prior study. The largest, most peripheral lower pole calcification has increased in size compared to the 2015 study. There is a punctate right lower pole intrarenal calcification. A wispy, linear 7 mm corticomedullary calcification in the mid pole of the right kidney is unchanged compared to the remote prior study. There are two cortical cysts in each kidney the largest measuring 14 mm on the right and 10 mm on the left. Clear lung bases. Moderate right coronary calcification. Normal sized heart. No hiatal hernia. The unenhanced appearance of the liver, decompressed gallbladder, adrenal glands, pancreas and spleen is normal. The abdominal aorta is normal in its course and caliber with mild to moderate atherosclerosis. There are no ureteral calcifications, retroperitoneal adenopathy or masses. The stomach, upper bowel loops, and mesentery appears normal. Intact anterior abdominal wall. No free fluid, or inflammation. No distal ureteral or urinary bladder calcifications. The unenhanced appearance of the prostate gland, seminal vesicles, partially filled urinary bladder, pelvic vessels, and pelvic bowel loops is normal. Non-visualized, potentially surgically absent appendix. No free fluid, or mass. Severe degenerative disc space loss L5-S1. Moderate joint space loss in the femoral acetabular joints bilaterally with minor spurring. IMPRESSION: 1. Nonobstructing left lower pole intrarenal calculi. There has been slight decrease in size (or interval passage of one) compared to the prior study (09/29/2016). 2. Stable right intrarenal linear calcification and a punctate lower pole nonobstructing calcification stable compared to the prior studies. No evidence of obstructive uropathy or perinephric inflammation. 3. Normal unenhanced appearance of the ureters and urinary bladder. All CT scans at this facility use dose modulation, iterative reconstruction, and/or weight-based dosing when appropriate to reduce radiation dose to as low as reasonably achievable.
== END 2016-10-29 23:00 | disposition home or self-care (01) ==
LOC: CT SRH 08:41
DX: N20.0 Calculus of kidney (principal)